=== PATIENT | female | born 1940 | race Caucasian/White ===

== ENCOUNTER → 2021-12-28 | Day surgery (SDC) | payer MEDICARE, OTHER ==
[~2021-12-28] MED LIST: Glycopyrrolate 0.2 MG/ML 5 ML MDV IV ONE; Lactated Ringers 1,000 ML IV PRN; Midazolam 1 MG/ML 2 ML SDV IV ONE; Sodium Chloride 0.9% 10 ML Syringe IV ONE; acetaZOLAMIDE 500 MG Cap.ER PO ONE; fentaNYL 100 MCG/2 ML SDV IV ONE
== END ==
LOC: FB.SDS 06:00
PROVIDERS: ATTEND Ophthalmology
DX: H26.9 Unspecified cataract (principal); E66.9 Obesity, unspecified; Z79.899 Other long term (current) drug therapy; Z68.32 Body mass index [BMI] 32.0-32.9, adult
CPT/HCPCS: 00142-QZ; J2250; J3010; J3490